=== PATIENT | male | born 1990 | race Caucasian/White ===

== ENCOUNTER 2019-04-09 13:40 | Emergency (ER) | payer MEDICAID ==
[~2019-04-09] VITALS: Ht 182.9 cm; Wt 103.9 kg
[2019-04-09 14:21] VITALS: BP 133/89
--- NOTE | 2019-04-09 14:27 | NUR ---
PT TO WAIT IN ER LOBBY. VSS. [id number]
--- NOTE | 2019-04-09 15:58 | NUR ---
PT TO ER BED 10
--- NOTE | 2019-04-09 16:16 | NUR ---
PT PRESENTED TO ED, C/O RIGHT ARMPIT ABSCESS, PT STATED THAT HE SCRATCHED HIS RIGHT ARMPIT 1 WEEKS AGO, THE FOLLOWING DAY NOTICED A PIMPLE AND IGNORED IT, YESTERDAY HE NOTICED A BIG BUMP ON RIGHT ARMPIT WITH YELLOW-REDDISH DISCHARGE AND PAIN 02/16. DENIES PUTTING TOPICAL MEDICATION. RIGHT ARMPIT NOTED HARD TO TOUCH AND PAIN ON PALPATION, NO REDNESS OR SWELLING. DENIES FEVER/N/V/D. ED MD DR. OMALLEY MADE AWARE. WILL CONTINUE TO MONITOR CLOSELY. BED IN LOWEST POSITION.
[2019-04-09 18:17] VITALS: BP 128/82
== END 2019-04-09 18:17 | disposition home or self-care (01) ==
LOC: MED 13:40
DX: L02.411 Cutaneous abscess of right axilla (principal); Z88.2 Allergy status to sulfonamides
CPT/HCPCS: 99283

== ENCOUNTER 2021-02-03 20:31 | Emergency (ER) | payer MEDICAID ==
[~2021-02-03] VITALS: Ht 182.9 cm; Wt 104.3 kg
[2021-02-03 20:34] VITALS: BP 133/83
--- NOTE | 2021-02-03 20:37 | NUR ---
TO LOBBY A/W BED AMBULATORY
[2021-02-03 21:24] LABS: APPEARANCE,URINE CLEAR (CLEAR); BILIRUBIN,URINE NEGATIVE (NEGATIVE); BLOOD, URINE 2+ (NEGATIVE); COLOR,URINE YELLOW (YELLOW); LEUKOCYTE ESTERASE ,URINE 1+ (NEGATIVE); NITRITE, URINE NEGATIVE (NEGATIVE); PH,URINE 5.5 (5.0-9.0); UGLUCOSE NEGATIVE (NEGATIVE)
[2021-02-03 21:34] LABS: WBC,URINE 16-25 (MOD) /HPF (0-5)
--- NOTE | 2021-02-03 21:42 | NUR ---
see complete assessment.
--- NOTE | 2021-02-03 21:59 | NUR ---
ERMD AT BEDSIDE FOR MEDICAL EVALUATION.
--- NOTE | 2021-02-03 22:09 | NUR ---
US at bedside.
[2021-02-03 22:53] VITALS: BP 128/76
[2021-02-03] MEDS ORDERED: IBUP-2213 PO (23:03)
[2021-02-03] MEDS ORDERED: DOXY100C9 PO (23:03)
[2021-02-03] MEDS ORDERED: LIDOCAINE MPF 1% 5 ML ONE (23:21)
[2021-02-03] MEDS ORDERED: cefTRIAXone 250 MG VIAL ONE (23:21)
[2021-02-03] MEDS: IBUPROFEN 600 MG TAB PO ONE (23:27)
[2021-02-03] MEDS: ACETAMINOPHEN EXTRA STRENGTH 500 MG TAB PO ONE (23:27)
[2021-02-03] MEDS: cefTRIAXone 250 MG in LIDOCAINE MPF 1% 0.9 ML IM ONE (23:28)
--- NOTE | 2021-02-03 23:31 | NUR ---
d/c with vss. d/c education given. opportunity to ask questions given and answered. rx of vibramycin and motrin given.
== END 2021-02-03 23:30 | disposition home or self-care (01) ==
LOC: MED 20:31
DX: N45.3 Epididymo-orchitis (principal); Z88.2 Allergy status to sulfonamides
CPT/HCPCS: 36415; 76870; 81001; 87086; 96372; 99284; J0696; J2001

== ENCOUNTER 2022-06-27 17:24 | Emergency (ER) | payer SELFPAY ==
[~2022-06-27] VITALS: Ht 182.9 cm; Wt 99.8 kg
[~2022-06-27 17:24] MED LIST: DOXY-690 PO; IBUP-2213 PO
[2022-06-27 17:41] VITALS: BP 123/72
--- NOTE | 2022-06-27 17:44 | NUR ---
pt to bed 09 via w/c
--- NOTE | 2022-06-27 18:05 | NUR ---
lukasz darnell at bedside examining pt.
--- NOTE | 2022-06-27 18:09 | NUR ---
us at bedside.
[2022-06-27] MEDS ORDERED: MORPHINE SULFATE 4 MG/ML SYR IM ONE (18:10)
[2022-06-27] MEDS ORDERED: MORPHINE SULFATE 4 MG/ML SYR ONE (18:14)
--- NOTE | 2022-06-27 18:15 | NUR ---
31M PRESENTS TO ED WITH C/O LEFT TESTICULAR AND LEFT LOWER QUADRANT PAIN SINCE LAST NIGHT. PT REPORTS HE WAS AT WORK AND ATTEMPTED TO PUSH A BOX USING HIS LEFT LEG AND STATES PAIN STARTED 1 HOUR LATER. PT REPORTS 10/10 CONSTANT PAIN THAT WORSENS WHEN STRAINING OR WALKING. PT'S LEFT TESTICLE APPEARS SWOLLEN WITH SLIGHT REDNESS. PT DENIES URINARY SYMPTOMS, DISCHARGE FROM PENIS, N/V/D.
[2022-06-27] MEDS ORDERED: KETOROLAC 60 MG/2 ML VIAL IM ONE (18:20)
--- NOTE | 2022-06-27 19:28 | NUR ---
Pt report given to ROXI ZAMARRIPA. Transfer of care at this time.
--- NOTE | 2022-06-27 20:20 | NUR ---
Patient laying in bed, A/Ox4, chest rise and fall symmetrical, no s/s of distress.
[2022-06-27] MEDS ORDERED: IBUP-2213 PO (20:40)
[2022-06-27 20:55] VITALS: BP 121/64
== END 2022-06-27 17:44 | disposition home or self-care (01) ==
LOC: MED 17:24
DX: N45.3 Epididymo-orchitis (principal); F12.90 Cannabis use, unspecified, uncomplicated; Z88.2 Allergy status to sulfonamides; Z72.89 Other problems related to lifestyle
CPT/HCPCS: 76870; 81002; 96372; 99284; J1885; Q0092; J2270

== ENCOUNTER 2024-05-15 13:28 | Emergency (ER) | payer MEDICAID ==
[~2024-05-15] VITALS: Ht 182.9 cm; Wt 100.7 kg
[2024-05-15 13:40] VITALS: BP 122/87; PULSE 97; RESP 16; TEMP 98.3; O2SAT 96
--- NOTE | 2024-05-15 13:53 | NUR ---
PT TO BED 3
[2024-05-15 14:01] VITALS: O2SAT 96
--- NOTE | 2024-05-15 14:01 | NUR ---
33YO M PRESENTS FOR EVALUATION OF BILATERAL FLANK PAIN, FREQUENT URINATION, HEMATURIA X 1 WEEK. DENIES FEVER, CHILL, N, V, D, SOB, CP, ABD PAINJ. NAD, SAFETY MAINTAINED, CALL LIGHT IN REACH. HX: DENIES ALLERGIES: SULFA
[2024-05-15] MEDS ORDERED: KETOROLAC 30 MG/ML VIAL ONE (14:38)
[2024-05-15] MEDS: KETOROLAC 30 MG/ML VIAL IM ONE (14:42)
[2024-05-15 15:09] LABS: BILIRUBIN,URINE NEGATIVE (NEGATIVE); BLOOD, URINE 3+ (NEGATIVE); COLOR,URINE YELLOW (YELLOW); LEUKOCYTE ESTERASE ,URINE 2+ (NEGATIVE); NITRITE, URINE NEGATIVE (NEGATIVE); PROTEIN,URINE 1+ (NEGATIVE); UGLUCOSE NEGATIVE (NEGATIVE); UROBILINOGEN,URINE 0.2 EU/dL (0.2 - 1)
[2024-05-15 15:10] LABS: APPEARANCE,URINE CLOUDY (CLEAR)
[2024-05-15 15:19] LABS: RBC,URINE 11-20 (MOD) /HPF (0-5)
[2024-05-15 15:20] LABS: BACTERIA,URINE 3+ /HPF (None Seen); MUCUS,URINE 2+ /LPF (None Seen); SQUAMOUS EPITHELIAL CELL,UR 4-10 (MOD) /LPF (0-3 (FEW)); WBC,URINE TOO MANY TO COUNT /HPF (0-5)
[2024-05-15] MEDS ORDERED: IBUP-1842 PO (15:31)
[2024-05-15] MEDS ORDERED: CIPR250T6 PO (15:31)
--- NOTE | 2024-05-15 15:35 | NUR ---
Patient discharged with v/s stable. Written and verbal after care instructions given and explained. Patient alert, oriented and verbalized understanding of instructions. Ambulatory with steady gait. All questions addressed prior to discharge. ID band removed. Patient advised to follow up with PMD. Rx of CIPRO, IBUPROFEN given. Opportunity to ask questions provided and answered.
--- NOTE | 2024-05-15 15:35 | NUR ---
Chart checked and completed. The patient's care was reviewed and supervised by EDWAR SCHMITT RN.
== END 2024-05-15 15:35 | disposition home or self-care (01) ==
LOC: MED 13:28
DX: N30.00 Acute cystitis without hematuria (principal); Z79.1 Long term (current) use of non-steroidal anti-inflammatories (NSAID); Z79.2 Long term (current) use of antibiotics; Z79.899 Other long term (current) drug therapy; Z88.2 Allergy status to sulfonamides
CPT/HCPCS: 81001; 87086; 87186; 87491; 96372; 99283; J1885